=== PATIENT | female | born 1985 | race Caucasian/White ===

== ENCOUNTER 2017-06-07 14:47 | Emergency (ER) | payer BC ==
--- NOTE | 2017-06-07 17:03 | UC ---
HPI Febrile Illness - HPI Summary HPI Summary: 31 yo female with onset on fever and chills yesterday some nausea mild cough mild congestion exposure to flu - History of Current Complaint Chief Complaint: UCGeneralIllness Time Seen by Provider: 06/07/17 16:46 Hx Obtained From: Patient Hx Last Menstrual Period: 05/05/18 Onset/Duration: Started Days Ago Time of Onset: 07:00 Timing: Constant Temperature: 103 F Initial Severity: Moderate Current Severity: None Pain Intensity: 5 Pain Scale Used: 0-10 Numeric Aggravating Factors: Nothing Alleviating Factors: OTC Medicine Associated Signs and Symptoms: Chills, Cough - very rare, Nausea - Allergy/Home Medications Allergies/Adverse Reactions: Allergies Allergy/AdvReac Type Severity Reaction Status Date / Time No Known Allergies Allergy Verified 06/07/17 15:35 PMH/Surg Hx/FS Hx/Imm Hx Previously Healthy: Yes Other History Of: Negative For: HIV, Hepatitis B, Hepatitis C, Anticoagulant Therapy - Surgical History Surgical History: Yes Surgery Procedure, Year, and Place: 06/2011 - Family History Known Family History: Positive: None Negative: Cardiac Disease, Hypertension - Social History Alcohol Use: Rare Substance Use Type: None Smoking Status (MU): Current Every Day Smoker Type: Cigarettes Amount Used/How Often: 4 cigarettes a day Review of Systems Constitutional: Fever, Chills, Fatigue ENT: Nasal Discharge - minimal Respiratory: Cough - minimal Gastrointestinal: Nausea Motor: Negative Neurovascular: Negative Musculoskeletal: Myalgia Neurological: Headache Is Patient Immunocompromised?: No All Other Systems Reviewed And Are Negative: Yes Physical Exam Triage Information Reviewed: Yes Appearance: Well-Appearing, No Pain Distress, Well-Nourished Vital Signs: Initial Vital Signs Temp 98.1 F 06/07/17 15:30 Pulse 81 06/07/17 15:30 Resp 19 06/07/17 15:30 BP 146/85 06/07/17 15:30 Pulse Ox 100 06/07/17 15:30 Vital Signs Reviewed: Yes Eyes: Positive: Conjunctiva Clear ENT: Positive: Hearing grossly normal, Pharynx normal, TMs normal, Uvula midline. Negative: Nasal congestion, Nasal drainage, TM bulging, TM dull, TM red, Tonsillar swelling, Tonsillar exudate, Trismus, Muffled voice, Hoarse voice , Dental tenderness, Sinus tenderness Dental Exam: Normal Neck: Positive: Supple, Nontender, No Lymphadenopathy Respiratory: Positive: Lungs clear, Normal breath sounds, No respiratory distress, No accessory muscle use Cardiovascular: Positive: RRR, No Murmur Abdomen Description: Positive: Nontender, No Organomegaly, Soft, CVA Tenderness (R). Negative: CVA Tenderness (L) Musculoskeletal: Positive: ROM Intact, No Edema Neurological: Positive: Alert Psychological Exam: Normal Skin Exam: Normal Diagnostics - Laboratory Diagnostic Studies Completed/Ordered: influenza (-). Udip (-) Course/Dx - Diagnoses Clinic Provider Diagnoses: viral syndrome. elevated blood pressure without diagnosis of hypertension Discharge - Discharge Plan Condition: Stable Disposition: HOME Prescriptions: Ondansetron TAB* [Zofran Tab*] 4 mg PO Q6H PRN #10 tab PRN Reason: Nausea Patient Education Materials: Viral Syndrome (ED) Forms: *Work Release Referrals: Myriam Anton MD [Primary Care Provider] - 2 Days Additional Instructions: rest fluids tylenol recheck for new or worsening symptoms/constant abdominal pain etc recheck in 48 hours if still febrile
[2017-06-07 17:34] VITALS: BP 137/71
== END 2017-06-07 17:33 | disposition home or self-care (01) ==
LOC: UCEAST 14:47
DX: B34.9 Viral infection, unspecified (principal); R03.0 Elevated blood-pressure reading, without diagnosis of hypertension; F17.210 Nicotine dependence, cigarettes, uncomplicated
CPT/HCPCS: 81003; 87502; 99212; G0463

== ENCOUNTER 2019-03-13 17:09 | Emergency (ER) | payer BC ==
--- OUTSIDE RECORDS SUMMARY | 2019-03-13 17:17 | XMS REPORT | Summary of Care ---
:1985 Author Organization [facility] Address [address] [facility] [place] [address] Care Team Providers Name Role Phone Myriam Anton Primary Care Provider Reason for Visit Reason Comments Psoriasis Refer to Department Only (Routine) Status Reason Specialty Diagnoses / Referred By Referred To Procedures Contact Contact Closed DERMATOLOGY / Diagnoses Psoriasis Antony Anton MD [address] [place] [address] Encounter Details Date Type Department Care Team Description 02/18/2019 Office Visit Enriquez Sharrivanessa Mango, Psoriasis (Primary Dx) Dermatology-[facility] PA-Ethel [address] [place] [address] [place] [address] [place] [address] [phone] Allergies No Known Allergiesdocumented as of this encounter (statuses as of 02/19/2019) Medications Medication Sig Dispensed Refills Start Date End Date Status halobetasol Apply twice 50 g 3 04/30/2018 Active (ULTRAVATE) 0.05 % daily Apply externally Ointment Nystatin 286306 1 g by Apply 1 Bottle 3 11/23/2018 Active UNIT/GM Apply externally externally Powder route THREE TIMES DAILY. Calcipotriene 1 Appl by 120 g 5 02/18/2019 Active TOPICAL 0.005 % Topical route Apply externally TWICE DAILY. CreamIndications: Apply to Psoriasis affected areas on the extremities, head, and trunk fluconazole Take 1 Tab by 6 Tab 0 11/14/2018 02/19/20 Discontinued (DIFLUCAN 100 MG) mouth 19 (Therapy 100 MG Oral Tab DIRECTED. 200 Completed) mg days 1, than 100 mg PO QD documented as of this encounter (statuses as of 02/19/2019) Active Problems Problem Noted Date Psoriasis 09/28/2016 BMI 45.0-49.9, adult 01/20/2014 Depression 09/06/2010 documented as of this encounter (statuses as of 02/19/2019) Immunizations Name Administration Dates Next Due DTAP Vaccine 09/11/1991, 07/28/1988 HIB 07/28/1988 Hepatitis B Vaccine 04/09/1999, 02/23/1998, 04/11/1995 Influenza (IM) Preservative Free 04/30/2018, 05/19/2014, 04/07/2011 MENINGOCOCCAL CONJUGATE VACCINE 05/26/2004 MMR VACCINE 09/11/1991, 04/14/1988 Measles Vaccine 09/11/1991, 04/14/1988 OPV 09/11/1991, 07/28/1988, 04/29/1987, 02/06/1987 TDAP Vaccine 01/20/2014 TETANUS & DIPHTHERIA TOXOID (OVER 7 02/23/1998 YRS) Tuberculin Skin Test 04/09/2011, 05/26/2004 documented as of this encounter Social History Tobacco Use Types Packs/Day Years Used Date Never Smoker 0 Smokeless Tobacco: Never Used Alcohol Use Drinks/Week oz/Week Comments No Sex Assigned at Date Recorded Not on file Job Start Date Occupation Industry Not on file Not on file Not on file Travel History Travel Start Travel End No recent travel history available. documented as of this encounter Last Filed Vital Signs Not on filedocumented in this encounter Patient Instructions Patient InstructionsMango Cardenas PA-C - 02/18/2019 3:00 PM EDTSchedule follow up appointment in two weeks I advised Ms. Hankins to: -apply calcipotriene 0.005% cream to affected areas on the extremities, head, and trunk twice daily -apply halobetasol cream for up to twice a day on affected areas (but never on the face or genitals)for up to two weeks in any one area; after two weeks, it may be applied only on weekends regularly -continue with Gold Willson Psoriasis as desired DIETARY MEASURES -take a multivitamin daily -consider eating a Mediterranean diet (use olive oil, lots of vegetables, fruits , legumes, fish, tree nuts, and sofrito sauce) -loose weight Other treatments such as narrow band UV, Otezla, and injectable biologics were discussed. documented in this encounter Progress Notes Mango Cardenas PA-C - 02/18/2019 3:00 PM EDT PATIENT: Mae Hankins : 1985 DATE OF SERVICE: 02/18/2019 REFERRING PRACTITIONER: Myriam Anton PRIMARY CARE PROVIDER: Myriam Anton Chief Complaint Patient presents with Psoriasis HISTORY OF PRESENT ILLNESS: Mae Hankins is a 33-y.o. female who presents for a new visit, for psoriasis. Locations affected: Eyes, ears, arms, legs, and abdomen Treatment to date: currently halobetasol 0.05% ointment used 1 of every 3 weeks and Gold Willson Psoriasis for moisturizing regularly. She has lost weight and tried to get sunlight on her legs (both had helped). Psoriatic lesions have spread to her hands recently. It embarasses her to show her skin. She is able to work well. Past Medical History: Diagnosis Date Depression Psoriasis Past Surgical History: Procedure Laterality Date ID REMOVE TONSILS/ADENOIDS,<13 Y/O AGE 6 History reviewed. No pertinent family history. Current Outpatient Medications Medication Sig Calcipotriene TOPICAL 0.005 % Apply externally Cream 1 Appl by Topical route TWICE DAILY. Apply to affected areas on the extremities, head, and trunk halobetasol (ULTRAVATE) 0.05 % Apply externally Ointment Apply twice daily Nystatin 901860 UNIT/GM Apply externally Powder 1 g by Apply externally route THREE TIMES DAILY. No current facility-administered medications for this visit. No Known Allergies Social History Socioeconomic History Marital status: Single Spouse name: Not on file Number of children: Not on file Years of education: Not on file Highest education level: Not on file Occupational History Not on file Social Needs Financial resource strain: Not on file Food insecurity: Worry: Not on file Inability: Not on file Transportation needs: Medical: Not on file Non-medical: Not on file Tobacco Use Smoking status: Never Smoker Smokeless tobacco: Never Used Substance and Sexual Activity Alcohol use: No Drug use: Yes Comment: Occasional marijuana Sexual activity: Yes Partners: Male Comment: No control attempting to get Lifestyle Physical activity: Days per week: Not on file Minutes per session: Not on file Stress: Not on file Relationships Social connections: Talks on phone: Not on file Gets together: Not on file Attends yarsanism service: Not on file Active member of club or organization: Not on file Attends meetings of clubs or organizations: Not on file Relationship status: Not on file Intimate partner violence: Fear of current or ex partner: Not on file Emotionally abused: Not on file Physically abused: Not on file Forced sexual activity: Not on file Other Topics Concern Not on file Social History Narrative February 2019. 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 Lives with , daughter, and brother. REVIEW OF SYSTEMS: ROS- Pertinent items are mentioned in present history plus the following: General negative Rheumatologic: Any singnificant joint problems: not in her hands. Some knee pain bilaterally. Skin: Any other skin concerns: no Pertinent items are mentioned in HPI, all other systems are negative PHYSICAL EXAMINATION: GENERAL: alert, oriented, no acute distress. Obese. DETAILED SKIN: Well demarcated red scaly plaques are present on the elbows and knees. Scattered pinkscaly papules on the elbows, forearms, abdomen, behind the left ear, on the ears, and hands Pitting of the fingernails IMPRESSION: ICD-9-CM ICD-10-CM 1. Psoriasis 696.1 L40.9 REFER TO DERMATOLOGY Calcipotriene TOPICAL 0.005 % Apply externally Cream plaque and guttate, with nail changes PLAN: Schedule follow up appointment in two months. I advised Ms. Hankins to: -apply calcipotriene 0.005% cream to affected areas on the extremities, head, and trunk twice daily -apply halobetasol cream for up to twice a day on affected areas (but never on the face or genitals)for up to two weeks in any one area; after two weeks, it may be applied only on weekends regularly -continue with Gold Willson Psoriasis as desired DIETARY MEASURES -take a multivitamin daily -consider eating a Mediterranean diet (use olive oil, lots of vegetables, fruits , legumes, fish, tree nuts, and sofrito sauce) -loose weight Other treatments such as narrow band UV, Otezla, and injectable biologics were discussed. Author: Mango Cardenas PA-C 02/18/2019 16:11 documented in this encounter Plan of Treatment Date Type Specialty Care Team Description 04/25/2019 Office Visit Dermatology Mango Cardenas PA-C [address] [facility] [place] [address] Health Maintenance Due Date Last Done Comments INFLUENZA VACCINE (#1) 2019 04/30/2018, 05/19/2014, 04/07/2011 DEPRESSION SCREENING 11/15/2019 11/14/2018 PAP SMEAR 11/14/2021 11/14/2018, 01/20/2014, 08/04/2011, Additional history exists MENINGOCOCCAL VACCINE IMM Completed 05/26/2004 HPV IMMUNIZATION SERIES Aged Out No longer eligible based on patient's age to complete this topic PNEUMOCOCCAL 0-64 YRS Aged Out No longer eligible based on patient's age to complete this topic documented as of this encounter Goals Goal Patient Goal Associated Recent Patient-Stated? Author Type Problems Progress Depression Depression No sadie Anton (PHQ-9) Myriam total score < 5 Note: This is an individualized treatment (depression) goal for Mae Hankins: Displayed above is your goal for a depression screening (PHQ-9) score that would indicate good control of your depression. Keep a regular sleep schedule Lifestyle No Myriam Anton MD Note: This is an individualized lifestyle goal for Mae Hankins: Please maintain a regular sleep schedule. This may help with some symptoms of depression. Take all prescribed medications as Self-management No Myriam Anton MD directed Note: This is an individualized self-management goal for Mae Hankins: Please take all prescribed medications as directed. 1. Do not skip doses. If you cannot afford your medications, talk with your doctor. 2. Use a pill reminder system such as a pill box if needed. Your pharmacist can help you with this. 3. Contact your Pharmacy 5 days before your medication runs out. If you cannot take your medications for any reasons, talk with your doctor. 4. Please bring all of your medication bottles and inhalers (or a list of all your medications/inhalers) with you to every visit. Potential barriers to meeting all of your care plan goals will continue to be addressed on an ongoing basis. documented as of this encounter Results Not on filedocumented in this encounter Visit Diagnoses Diagnosis Psoriasis - Primary Other psoriasis documented in this encounter Insurance Payer Benefit Plan / Subscriber ID Effective Dates Phone Address Type Group AMY CRAMER xxxxxxxxxxxx 2017-Present Amy HER PPO Guarantor Name Account Type Relation to Date of Phone Billing Patient Address Mae Hankins Personal/Family 1985 [address] ([address]) [phone] [place], [place] (Work) [id number] documented as of this encounter
[2019-03-13 17:22] VITALS: BP 161/92
--- NOTE | 2019-03-13 18:01 | UC ---
Abdominal Pain Female HPI - HPI Summary HPI Summary: 33-year-old woman coming in with a chief complaint of worsening abdominal pain and diarrhea for 2 weeks. 2 weeks ago started with nausea vomiting and diarrhea. Patient continues to be nauseous she is no longer vomiting. Pain is getting worse rather than better. Pain is primarily across the upper abdomen down to the left lower quadrant. Eating makes the diarrhea worse makes the pain worse. She's had a in the past otherwise no surgeries in the abdomen. No urinary symptoms. She did have exposure to somebody with C. difficile. Has not seen any blood in the stool. She's tried [id number] pain medicines and they are not helping. - History of Current Complaint Chief Complaint: UCGI Stated Complaint: ABD PAIN, GI ISSUE Time Seen by Provider: 03/13/19 17:26 Hx Last Menstrual Period: [id number] Pain Intensity: 5 Allergies/Adverse Reactions: Allergies Allergy/AdvReac Type Severity Reaction Status Date / Time No Known Allergies Allergy Verified 03/13/19 17:23 Home Medications: Home Medications Ibuprofen TAB* [Motrin TAB* 600 MG] 600 mg PO Q6H PRN 03/13/19 [History Confirmed 03/13/19] PMH/Surg Hx/FS Hx/Imm Hx Previously Healthy: Yes Other History Of: Negative For: HIV, Hepatitis B, Hepatitis C, Anticoagulant Therapy - Surgical History Surgical History: Yes Surgery Procedure, Year, and Place: 06/2011 - Family History Known Family History: Positive: None Negative: Cardiac Disease, Hypertension - Social History Alcohol Use: Rare Substance Use Type: None Smoking Status (MU): Light Every Day Tobacco Smoker Type: Cigarettes Amount Used/How Often: 4 cigarettes a day Review of Systems All Other Systems Reviewed And Are Negative: Yes Constitutional: Positive: Other - SEE HPI Skin: Positive: Negative Eyes: Positive: Negative ENT: Positive: Negative Respiratory: Positive: Negative Cardiovascular: Positive: Negative Gastrointestinal: Positive: Abdominal Pain, Vomiting, Diarrhea, Nausea, Other - SEE HPI Genitourinary: Positive: Negative Motor: Positive: Negative Neurovascular: Positive: Negative Musculoskeletal: Positive: Negative Neurological: Positive: Negative Psychological: Positive: Negative Is Patient Immunocompromised?: No Physical Exam Triage Information Reviewed: Yes Appearance: Well-Appearing, Well-Nourished, Pain Distress - MILD Vital Signs: Initial Vital Signs Temp 99.2 F 03/13/19 17:17 Pulse 87 03/13/19 17:17 Resp 16 03/13/19 17:17 BP 161/92 03/13/19 17:17 Pulse Ox 100 03/13/19 17:17 Vital Signs Reviewed: Yes Eye Exam: Normal Eyes: Positive: Conjunctiva Clear Neck: Positive: Supple Respiratory: Positive: Lungs clear, Normal breath sounds, No respiratory distress Cardiovascular: Positive: RRR Abdomen Description: Positive: Other: - Abdomen is tender to palpation right upper quadrant epigastric left upper quadrant and left lower quadrant. Right lower quadrant is nontender to palpation. Bowel Sounds: Positive: Hypoactive Musculoskeletal: Positive: Strength Intact, ROM Intact Neurological: Positive: Alert, Muscle Tone Normal Psychological: Positive: Age Appropriate Behavior Skin Exam: Normal Abd Pain Female Course/Dx - Course Course Of Treatment: Due to the severity of the pain and lack of ability to have timely lab work I recommended further evaluation emergency Department. - Differential Dx/Diagnosis Provider Diagnosis: Abdominal pain Discharge ED - Sign-Out/Discharge Documenting (check all that apply): Patient Departure All imaging exams completed and their final reports reviewed: No Studies - Discharge Plan Condition: Stable Disposition: HOME-RECOMMEND TO ED Patient Education Materials: Acute Abdominal Pain (ED) Referrals: Myriam Anton MD [Primary Care Provider] - Additional Instructions: GO DIRECTLY TO THE EMERGENCY DEPARTMENT FOR FURTHER EVALUATION OF YOUR ABDOMINAL PAIN. - Billing Disposition and Condition Condition: STABLE Disposition: Home-Recommend to ED
== END 2019-03-13 18:06 | disposition home health service (06) ==
LOC: UCEAST 17:09
DX: R10.9 Unspecified abdominal pain (principal); F17.210 Nicotine dependence, cigarettes, uncomplicated; R19.7 Diarrhea, unspecified; R11.2 Nausea with vomiting, unspecified
CPT/HCPCS: 99212; G0463

== ENCOUNTER 2019-03-13 18:22 | Emergency (ER) | payer BC ==
[2019-03-13 18:27] VITALS: BP 149/85
== END 2019-03-13 20:14 | disposition left against medical advice (07) ==
LOC: ED 18:22
DX: Z53.21 Procedure and treatment not carried out due to patient leaving prior to being seen by health care provider (principal); R10.9 Unspecified abdominal pain
CPT/HCPCS: 99282